=== PATIENT | male | born 1975 ===

== ENCOUNTER 2021-11-24 13:56 | Emergency (ER) | payer MEDICAID ==
[2021-11-24 15:46] VITALS: BP 132/79
== END 2021-11-24 23:00 | disposition left against medical advice (07) ==
LOC: ED 13:56
DX: Z04.1 Encounter for examination and observation following transport accident (principal); Z53.21 Procedure and treatment not carried out due to patient leaving prior to being seen by health care provider; V89.2XXA Person injured in unspecified motor-vehicle accident, traffic, initial encounter; Y93.89 Activity, other specified; Y92.89 Other specified places as the place of occurrence of the external cause; Y99.8 Other external cause status